=== PATIENT | male | born 1995 | race Caucasian/White ===

== ENCOUNTER 2019-04-14 21:16 | Emergency (ER) | payer SELFPAY ==
[2019-04-14 21:57] LABS: Absolute Monocytes 0.9 K/uL (0.1-1.3); Absolute Neutrophil 9.3 K/uL (1.8-8.0); Basophils % 0.3 % (0-1.3); Eosinophils % 1.2 % (0-4.4); Hematocrit 46.2 % (39.6-49.0); Lymphocytes % 16.3 % (15.3-44.8); MPV 9.3 fL (7.6-11.3); Monocytes % 7.1 % (3.3-12.3); RBC Red Blood Cell Count 4.97 M/uL (4.33-5.43)
[2019-04-14] MEDS ORDERED: TETANUS & DIPHTHERIA TOX,ADULT 0.5 ML VIAL ONE (21:59)
[2019-04-14 22:13] LABS: Potassium 3.4 mmol/L (3.5-5.1)
[2019-04-14] MEDS ORDERED: MORPHINE 2 MG/ML SYR ONE (23:15)
[2019-04-14] MEDS ORDERED: ONDANSETRON 4 MG/2 ML VIAL ONE (23:15)
[2019-04-14] MEDS ORDERED: NA CHLORIDE 0.9% 1,000 ML ONE (23:15)
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
[2019-04-15] MEDS ORDERED: HYDROCODONE/APAP 5/325 MG TAB ONE (00:50)
--- NOTE | 2019-04-15 12:02 | RAD REPORT ---
EXAM DESCRIPTION: Richard Single View04/14/2019 10:14 pm CLINICAL HISTORY: Chest pain COMPARISON: none FINDINGS: The lungs appear clear of acute infiltrate. The heart is normal size IMPRESSION: No acute abnormalities displayed
--- NOTE | 2019-04-15 12:14 | RAD REPORT ---
EXAM DESCRIPTION: RAD - Knee Left 3 View - 04/14/2019 10:13 pm CLINICAL HISTORY: Left knee pain status post injury FINDINGS: No fracture or dislocation is seen.
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
== END 2019-04-15 00:51 | disposition home or self-care (01) ==
LOC: ER 21:16
DX: S20.221A Contusion of right back wall of thorax, initial encounter (principal); J01.90 Acute sinusitis, unspecified; V28.4XXA Motorcycle driver injured in noncollision transport accident in traffic accident, initial encounter; Z23 Encounter for immunization; F17.210 Nicotine dependence, cigarettes, uncomplicated
CPT/HCPCS: 36415; 70450; 71045; 71260; 72125; 74177; 80048; 85025; 86850; 86900; 86901; 90471; 90714; 96361; 96374; 96375; 99285; J2270; J2405; J7030; Q9967